=== PATIENT | female | born 2000 | race Caucasian/White ===

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

== ENCOUNTER 2024-02-11 14:47 | Emergency (ER) | payer MEDICAID, OTHER ==
[~2024-02-11] VITALS: Ht 170.2 cm; Wt 57.6 kg
[2024-02-11 15:21] VITALS: BP 103/64; PULSE 72; RESP 15; TEMP 98.3; O2SAT 98
[2024-02-11] MEDS ORDERED: LIDOCAINE MPF 1% 10 MG/ML VIAL INJ ONE (16:00)
[2024-02-11] MEDS ORDERED: LIDOCAINE MPF 1% 5 ML ONE (17:37)
[2024-02-11] MEDS ORDERED: LIDOCAINE 2% 100 MG/5 ML UJET TP ONE ×2 (17:50)
[2024-02-11] MEDS ORDERED: LIDOCAINE OINTMENT 5% 35 GM TUBE TP ONE (17:55)
[2024-02-11] MEDS ORDERED: LIDOCAINE OINTMENT 5% 35 GM TUBE TP SCH (18:10)
[2024-02-11] MEDS ORDERED: CEPH-588 PO (19:26)
[2024-02-11] MEDS ORDERED: ACETAMINOPHEN 325 MG TAB ONE (19:45)
[2024-02-11] MEDS: ACETAMINOPHEN 325 MG TAB PO ONE (19:56)
[2024-02-11 19:58] VITALS: BP 130/70; PULSE 69; RESP 18; TEMP 97.6; O2SAT 98
== END 2024-02-11 20:00 | disposition home or self-care (01) ==
LOC: MED 14:47
DX: N76.4 Abscess of vulva (principal); R11.2 Nausea with vomiting, unspecified; R19.7 Diarrhea, unspecified; Z79.899 Other long term (current) drug therapy
CPT/HCPCS: 56405; 99284; J2003